=== PATIENT | female | born 1940 | race Caucasian/White ===

== ENCOUNTER 2020-07-06 09:19 | Day surgery (SDC) | payer MEDICARE, OTHER, SELFPAY ==
[2020-06-25 15:27] VITALS: BMI 26.6
[2020-07-06] VITALS (8 sets, daily range): BP systolic 102–146; BP diastolic 48–68; PULSE 55–67; RESP 16; TEMP 35.8–36.7; O2SAT 96–100; BMI 27.6
--- NOTE | 2020-07-06 | EGD_PTH ---
PATIENT: ESTEE EM LOC: [facility] U#:[id number] AGE/SX: 80/F ROOM: RE07/06/[address]: Dr. Yasir Churchill MD : 1940 BED: DIS: 07/06/2020 SPEC #: [id number] RECD: 07/06/20 12:34 STATUS: BRITTNI LUL #: [id number] TRICIA: 07/06/20 00:[address]: Yasir Churchill DEPT: SURGICAL PATHOLOGY RECD BY: Rogelio Sanchez ENTERED: 07/06/20 12:34 SP TYPE: EGD BIOPSY [facility] DR: Dr. Boaz Dewey MD Tissues: A - Duodenum, NOS B - Gastric mucous membrane C - Stomach, NOS D - Esophageal mucous membrane Procedures: Surgery Specimen Level IV HEADER OPERATION: EGD ([facility] [place]) PRE-OP DIAGNOSIS: GERD, abdominal bruit, hiatal hernia TISSUE SUBMITTED: A ? Duodenal biopsy, B ? Antral biopsy for H. pylori and path, C ? Greater curvature polyp biopsy, D ? Distal esophagus biopsy MICROSCOPIC DIAGNOSIS A. Duodenum, biopsy: Mild nonspecific chronic inflammation. B. Gastric antrum, biopsy: Chronic gastritis. C. Polyp of greater curvature, biopsy: Fundic gland polyp. D. Distal esophagus, biopsy: No pathologic change. AM:efrain 07/09/2020 COMMENT B. The results of immunohistochemistry for Helicobacter pylori will be reported separately ([id number]). MICROSCOPIC DESCRIPTION Slides are reviewed. GROSS DESCRIPTION A - Received in fixative is one container labeled with the patient's name and designated duodenal biopsy. The specimen consists of one irregular fragment of light wei soft tissue that measures 0.3 x 0.3 x 0.1 cm. The specimen is totally submitted in one cassette. B - Received in fixative is one container labeled with the patient's name and designated antral biopsy. The specimen consists of one irregular fragment of light wei soft tissue that measures 0.3 x 0.3 x 0.1 cm. The specimen is totally submitted in one cassette. C - Received in fixative is one container labeled with the patient's name and designated greater curvature polyp biopsy. The specimen consists of one irregular fragment of light wei soft tissue that measures 0.4 x 0.3 x 0.1 cm. The specimen is totally submitted in one cassette. D - Received in fixative is one container labeled with the patient's name and designated distal esophagus biopsy. The specimen consists of one irregular fragment of light wei soft tissue that measures 0.6 x 0.2 x 0.1 cm. The specimen is totally submitted in one cassette. / JEY:efrain 07/06/20 TC:3 CPT: 78049 x4
--- NOTE | 2020-07-06 09:50 | HP.PCM_ITS ---
History and Physical Date of Admission: 07/06/20 Intake Visit Reasons: DISCUSS EGD, HIATAL HERNIA Chief Complaint: hiatal hernia/ GERD [employer] Telephone Clerk Required: No Is patient in pain?: No Allergies morphine Allergy (Mild, Verified 06/25/20 15:29) tachycardia Penicillins Allergy (Mild, Verified 06/25/20 15:29) localized swelling Medications alprazolam 1 mg tablet mg PO 06/25/20 [History Confirmed 06/25/20] clopidogrel 75 mg tablet mg PO 06/25/20 [History Confirmed 06/25/20] levothyroxine 100 mcg tablet mcg PO 06/25/20 [History Confirmed 06/25/20] lisinopril 10 mg tablet mg PO 06/25/20 [History Confirmed 06/25/20] metformin 500 mg tablet mg PO 06/25/20 [History Confirmed 06/25/20] metoprolol succinate 100 mg tablet,extended release 24 hr mg PO 06/25/20 [History Confirmed 06/25/20] omeprazole 40 mg capsule,delayed release mg PO 06/25/20 [History Confirmed 06/25/20] Is last menstrual period known: No Post menopausal: Yes Patient : No PFSH Medical History (Updated 06/25/20 @ 16:[address] Yasir Churchill MD) Back pain Carotid stenosis, right Hiatal hernia Hyperlipidemia Osteoarthritis TIA (transient ischemic attack) Surgical History (Updated 06/25/20 @ 15:27 by Dulce Walker) History of esophagogastroduodenoscopy (EGD) History of right-sided carotid endarterectomy History of total bilateral knee replacement Social History (Updated 06/25/20 @ 15:27 by Dulce Walker) Smoking Status: Never smoker HPI HPI HPI: ESTEE EM, is a 79 F who presents to the office today for surgical consultation regarding increasing problems with suspected gastroesophageal reflux disease. The patient states that she is on omeprazole therapy as well as metoclopramide. She has the head of her bed elevated. She tries not to eat within a few hours of going to sleep. She has been very stressed as she has lost her February 2020. She is able to eat meals but has decreased appetite and supposedly because of the reflux has decreased food intake. Her daughter questions whether she could have an esophageal stricture. Apparently a period of time back she had a CT scan done looking for weight loss. This was performed in [facility]. The patient also reports of having a TIA 10 years ago. She states that there was no particular finding and she was placed on clopidogrel at that time and she has been on clopidogrel ever since. She then changed doctors and 3 years ago apparently was diagnosed as having critical stenosis of the right carotid and had a right carotid endarterectomy. She was maintained however on her clopidogrel therapy. Apparently there was no made correlation of carotid stenosis and TIA. She remains on her clopidogrel at this time with the etiology to her TIA 10 years ago apparently undetermined. She has not had any recurrent symptoms. At that time she noted a vague feeling of unwellness unsteadiness. There did not appear to according to her current account of a focal unilateral motor or sensory loss She does not recall having had an esophagram or a EGD or manometric studies. She has never had a colonoscopy because she was encouraged by her physicians that they were too dangerous. She did however apparently have a Cologuard test in the past which was negative. Her primary concern is burning in the back of her mouth and a bad taste in the back of the mouth. She states that she does not sense it retrosternally. After her departure I now have evidence of a full medication list. In addition to her routine medications she is on Protonix 40 mg daily and it appears she had omeprazole added to that and metoclopramide. January 31, 2020 Cologuard was negative. April 23, 2020 at [facility] a ultrasound abdomen complete was unremarkable except that the liver contains multiple cysts. There were no gallstones. A ultrasound of the aorta done April 19, 2020 was negative for abdominal or iliac aneurysm. A carotid duplex exam performed January 30, 2020 showed 1 to 19% stenosis of the right internal carotid artery. There was stenosis of the right external carotid artery. Minimal 1 to 19% stenosis of the left internal carotid artery. It appears that the patient was somewhat confused and not if this information reflects a previous CT scan. I am assuming that she felt that this was consistent with the ultrasound that she had HPI HPI HPI: ESTEE EM, is a 79 F who presents to the office today for ROS General General: No weight change, appetite, fatigue, colon cancer, breast cancer or weakness HEENT HEENT: Yes difficulty swallowing; No eye injury, eye surgery, swollen glands or hoarseness Endo Endocrine: Yes diabetes mellitus; No thyroid disease, thyroid cancer, Hair loss, heat intolerance or cold intolerance Musc Musculoskeletal: Yes back problems and arthritis; No rheumatoid arthritis, gout or joint pain Cardio Cardiovascular: Yes murmur, heart disease and high blood pressure; No pacemaker, atrial fibrillation, heart attack, heart stent, palpitations, shortness of breat with exertion or chest pain Psych Psychiatric: No depression, anxiety or hearing voices Resp Respiratory: No shortness of breath, No sleep apnea, No cough, No COPD, Yes asthma, No emphysema and No wheezing Gastro Gastrointestinal: No abdominal pain, Yes nausea or vomiting, No diarrhea, No constipation, No blood in stool, Yes acid reflux, No hemorrhoids, No ulcers, No gallbladder problem and No black,tarry stools Jah Hematologic: Yes blood thinners, No blood disorders, No bleeding, No anemia and No blood clots Neuro Neurologic: No weakness Exam Const General: cooperative, healthy appearing, comfortable and no acute distress HENMT Head: normal to inspection Eyes General: appearance normal, both eyes and all related structures Neck Neck: normal visual inspection Carotids: normal carotid upstroke and no bruits Resp Effort & Inspection: normal respiratory effort Auscultation: clear to auscultation bilaterally Cardio Rate: regular rate Rhythm: regular rhythm Heart Sounds: murmur GI Palpation: soft and no hepatosplenomegaly Auscultation: normal bowel sounds Other: Soft 2/6 mid abdominal bruit Musc Cervical Spine: normal cervical lordosis Skin General: no rashes or lesions noted Neuro Cognition: normal cognition Extrem General: no calf tenderness bilaterally Psych Affect: normal affect Assessment and Plan Assessment and Plan (1) GERD (gastroesophageal reflux disease): Status: Acute Qualifiers: Esophagitis presence: esophagitis presence not specified Qualified Code(s): K21.9 - Gastro-esophageal reflux disease without esophagitis (2) Abdominal bruit: Status: Acute (3) Hiatal hernia: Status: Acute Plan Details Additional Comments: 79-year-old female. Clearly symptoms seem to be consistent with gastroesophageal reflux disease. She does have an apparent history of a hiatal hernia. She has never had an upper endoscopy. It is unclear as to the size of hiatal hernia or the potential presence of Chirinos's. It is unclear as to whether she has an esophageal stricture. I do recommend to her an esophagogastroduodenoscopy with possible biopsy or polypectomy or esophageal dilatation if indicated. She is aware of the technique, benefit, risk, alternatives. 10 years ago she had a TIA. She has been on clopidogrel ever since. She has had no recurrent symptoms. 3 years ago she had a right carotid endarterectomy however it remains unclear to her and her daughter as to whether this had anything to do with her TIA 10 years ago. She is maintained on her clopidogrel as she has been instructed that she would risk stroke if not on it. A recent carotid duplex exam was negative for clinically significant carotid occlusive disease. She states that in the not too distant past she has had a CT scan as well as carotid duplex imaging. I will want to obtain the results of these findings. Reports that we have achieved from primary care do not reflect a previous CT scan but rather previous abdominal ultrasound. That of course not useful in detecting hiatal hernia. It demonstrated multiple liver cysts no gallstones. There is no evidence of aortic aneurysm The patient does not have an accurate list of her current medications we will also want to obtain a list of those. We achieved a list of medications suggesting that Protonix was a routine medication perhaps now being converted over to omeprazole. She was being treated with Reglan for nausea but one of the side effects was diarrhea I did discuss with her the potential of adding a colonoscopy with possible biopsy or polypectomy to her upper endoscopy. She states that she is afraid of that examination and does not want to proceed with it. As noted above she verbally reports that she has had a Cologuard test that was negative. Her negative Cologuard test has been confirmed. We will obtain the pertinent records and we will tentatively schedule her for a EGD under monitored anesthesia care as noted above. I very much appreciate the ongoing opportunity of assisting with her surgical care. We will make additional recommendations based upon further information that we received. Copy: Dr.Penhos Yasir Churchill M.D., F.A.C.S I have re-examined the patient. There are no clinical changes since date of exam.
[2020-07-06] MEDS: Lactated Ringers 1,000 ML 100 ML IV (10:00)
[2020-07-06 10:05] LABS: Bedside Glucose 90 mg/dL (70-110)
--- NOTE | 2020-07-06 10:45 | IMM_PTH ---
PATIENT: ESTEE EM LOC: [facility] U#:[id number] AGE/SX: 80/F ROOM: RE07/06/[address]: Dr. Yasir Churchill MD : 1940 BED: DIS: 07/06/2020 SPEC #: [id number] RECD: 07/06/20 14:30 STATUS: BRITTNI REGisele #: [id number] TRICIA: 07/06/20 10:[address]: Yasir Churchill DEPT: IMMUNOHISTOCHEMISTRY RECD BY: Sabrina Oropeza ENTERED: 07/06/20 14:30 SP TYPE: IMMUNO OTHR DR: Dr. Boaz Dewey MD Tissues: B - Stomach, NOS Procedures: H Pylori (initial) PHYSICIAN & INSTITUTION [place] [id number] SPECIMEN INFORMATION: Tissue Source: B ? Antral biopsy Clinical Info: GERD, abdominal bruit, hiatal hernia Specimen Number: [id number] CPT code: 66928 METHODOLOGY: Deparaffinized sections of prefer/formalin-fixed tissue or PAP/DQ stained slides are incubated with monoclonal/polyclonal antibodies/oligonucleotide probes. Localization is made via biotin free immunoperoxidase method. Appropriate controls are performed and reacted as expected. Results on target cell population are indicated in the following table: RESULTS: ANTIBODY / CLONE RESULT Block B H Pylori (polyclonal) negative These tests were developed and their performance characteristics determined by [facility]. They may not have been cleared or approved by the U.S. Food and Drug Administration. The FDA has determined that such clearance or approval is not necessary. INTERPRETATION: B. Antral biopsy: Negative for Helicobacter pylori organisms. AM:efrain 07/09/2020
--- NOTE | 2020-07-06 11:10 | OP.EGD_ITS ---
Patient Name: Karen Salguero Procedure Date: 07/06/2020 10:45 AM Date of : 1940 Age: 80 Procedure: Upper GI endoscopy Indications: Epigastric abdominal pain Providers: Yasir Churchill MD Medicines: See the Anesthesia note for documentation of the administered medications Complications: No immediate complications. Procedure: Pre-Anesthesia Assessment: - Prior to the procedure, a History and Physical was performed, and patient medications and allergies were reviewed. The patient's tolerance of previous anesthesia was also reviewed. The risks and benefits of the procedure and the sedation options and risks were discussed with the patient. All questions were answered, and informed consent was obtained. Prior Anticoagulants: The patient has taken Plavix (clopidogrel), last dose was 1 day prior to procedure. ASA Grade Assessment: III - A patient with severe systemic disease. After reviewing the risks and benefits, the patient was deemed in satisfactory condition to undergo the procedure. After obtaining informed consent, the endoscope was passed under direct vision. Throughout the procedure, the patient's blood pressure, pulse, and oxygen saturations were monitored continuously. The Endoscope was introduced through the mouth, and advanced to the second part of duodenum. The upper GI endoscopy was accomplished without difficulty. The patient tolerated the procedure well. Scope In: 10:56:38 AM Scope Out: 11:02:02 AM Total Procedure Duration Time 0 hours 5 minutes 24 seconds Findings: Esophagitis with no bleeding was found 39 cm from the incisors. Biopsies were taken with a cold forceps for histology. A small hiatal hernia was present. Diffuse moderately erythematous mucosa without bleeding was found in the gastric antrum. Biopsies were taken with a cold forceps for histology. Multiple pedunculated and sessile polyps with no stigmata of recent bleeding were found in the gastric fundus. The polyp was removed with a cold biopsy forceps. Resection and retrieval were complete. The examined duodenum was normal. Biopsies were taken with a cold forceps for histology. Bilious fluid was found in the gastric antrum. Impression: - Reflux esophagitis. Biopsied. - Small hiatal hernia. - Erythematous mucosa in the antrum. Biopsied. - Multiple gastric polyps. Resected and retrieved. - Normal examined duodenum. Biopsied. - Bilious gastric fluid. Recommendation: - Discharge patient to home. - Resume previous diet. - Continue present medications. - Use sucralfate tablets 1 gram PO QID. Procedure Code(s): --- Professional --- 16059, Esophagogastroduodenoscopy, flexible, transoral; with biopsy, single or multiple CPT copyright 2017 [employer]. All rights reserved. The codes documented in this report are preliminary and upon supervisor production review may be revised to meet current compliance requirements. Yasir Churchill MD 07/06/2020 11:10:10 AM This report has been signed electronically. Number of Addenda: 0 Note Initiated On: 07/06/2020 10:45 AM
--- NOTE | 2020-07-06 11:10 | OP.CCLET_ITS ---
07/06/2020 Boaz Dewey Md Re : Upper GI endoscopy procedure for Karen Salguero Dear Maco This procedure was performed on Monday, July 06, 2020. My impressions and recommendations are as follows: Impressions : - Reflux esophagitis. Biopsied. - Small hiatal hernia. - Erythematous mucosa in the antrum. Biopsied. - Multiple gastric polyps. Resected and retrieved. - Normal examined duodenum. Biopsied. - Bilious gastric fluid. Recommendations : - Discharge patient to home. - Resume previous diet. - Continue present medications. - Use sucralfate tablets 1 gram PO QID. My findings are described in the full procedure note, which is enclosed. If I can be of further assistance, please feel free to contact me at Doctor phone number(s): Work: . Sincerely, Yasir Churchill MD 07/06/2020 11:10:10 AM This report has been signed electronically.
== END 2020-07-06 12:19 ==
LOC: EN 09:23 → AC 09:26
PROVIDERS: PCP Legal Medicine; Referring Provider Legal Medicine; Visit Provider Surgery
PROC: 0DJ08ZZ Inspection of Upper Intestinal Tract, Via Natural or Artificial Opening Endoscopic (ICD-10-PCS; CPT 43235; principal; 2020-07-06 10:40)
DX: K29.50 Unspecified chronic gastritis without bleeding (principal); K21.00 Gastro-esophageal reflux disease with esophagitis, without bleeding; K44.9 Diaphragmatic hernia without obstruction or gangrene; K31.7 Polyp of stomach and duodenum; E78.5 Hyperlipidemia, unspecified; Z86.73 Personal history of transient ischemic attack (TIA), and cerebral infarction without residual deficits; I65.23 Occlusion and stenosis of bilateral carotid arteries; Z63.4 Disappearance and death of family member; Z79.02 Long term (current) use of antithrombotics/antiplatelets; Z79.84 Long term (current) use of oral hypoglycemic drugs; Z79.899 Other long term (current) drug therapy; Z88.0 Allergy status to penicillin; Z98.890 Other specified postprocedural states
CPT/HCPCS: 43239; 82962; 88305; 88342; J7120; J2405